=== PATIENT | male | born 1985 | race Caucasian/White ===

== ENCOUNTER 2021-03-27 23:11 | Emergency (ER) | payer BC ==
[~2021-03-27] VITALS: Ht 172.7 cm; Wt 88.2 kg
--- NOTE | 2021-03-27 23:15 | PHYS DOC ---
General Adult HPI: HPI: "..My dogs were starting to get into it.... and I ran down the stairs to break [employer] up.. and slipped on stairs..and jammed this toe.. I thinik I broke il.." Patient is a 35 year old male who presents with above hx and complaints slip and fall on stairs stabbing right foot with localized injury to third toe. Toe appears to be fractured and displaced. Distal sensation is intact. Distal cap refill is equal to other toes. Patient denies other injury. Patient normally healthy. 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 Patient denies any travel or specific ill contacts. Normally healthy. Review of Systems: Review of Systems: Constitutional: Denies fever or chills Eyes: Denies change in visual acuity HENT: Denies nasal congestion or sore throat Respiratory: Denies cough or shortness of breath Cardiovascular: Denies chest pain or edema GI: Denies abdominal pain, nausea, vomiting, bloody stools or diarrhea : Denies dysuria Musculoskeletal: Complains of injury of the right middle toe Integument: Denies rash Neurologic: Denies headache, focal weakness or sensory changes Endocrine: Denies polyuria or polydipsia Lymphatic: Denies swollen glands Psychiatric: Denies depression or anxiety Family History: Family History: Noncontributory to presentation Current Medications: Current Meds: See nursing for home meds Allergies: Allergies: No known drug allergies Physical Exam: PE: Constitutional: Well developed, well nourished, no acute distress, non-toxic appearance. [] HENT: Normocephalic, atraumatic, bilateral external ears normal, oropharynx moist, no oral exudates, nose normal. [] Eyes: PERRLA, EOMI, conjunctiva normal, no discharge. [] Neck: Normal range of motion, no tenderness, supple, no stridor. [] Cardiovascular:Heart rate regular rhythm, no murmur [] Lungs & Thorax: Bilateral breath sounds equal apex auscultation [] Abdomen: Bowel sounds normal, soft, no tenderness, no masses, no pulsatile masses. [] Skin: Warm, dry, no erythema, no rash. [] Back: No tenderness, no CVA tenderness. [] Extremities: No tenderness, no cyanosis, no clubbing, ROM intact, no edema. [] Except findings in right middle toe as per HPI. Neurologic: Alert and oriented X 3, normal motor function, normal sensory function, no focal deficits noted. [] Psychologic: Affect anxious, judgement normal, mood normal. [] EKG: EKG: [] Radiology/Procedures: Radiology/Procedures: [][address] [address] IMAGING REPORT Signed PATIENT: MADIHA GOLDEN ACCOUNT: [id number] : 1985 LOCATION: ER AGE: 35 SEX: M EXAM STATUS: REG ER ORD. PHYSICIAN: MED YUNG MD REASON: injury PROCEDURE: FOOT RIGHT 3V Study: XR FOOT_RIGHT 3 VIEWS Indication: Injury. Comparison: None. Findings: Acute, displaced fracture of the distal aspect of the third proximal phalanx with dorsal apex angulation. The proximal aspect of the fracture is displaced dorsally by up to approximately 2.5 mm. Foreshortening by a few millimeters as well. No intra-articular extension into the adjacent PIP joint. No additional fracture is identified or traumatic malalignment. Maintained joint spaces. Impression: Acute, displaced and dorsally angulated fracture of the third proximal phalanx, as above. Electronically signed by: JOSR CHAIREZ MD (03/28/2021 12:01 AM) [facility] DICTATED AND SIGNED BY: JOSR CHAIREZ MD DATE: 03/28/21 0000 CC: MED YUNG MD; PCP,NO ~MTH0 0 Heart Score: C/O Chest Pain: N/A HEART Score for Chest Pain: HEART Score for Chest Pain Response (Comments) Value History Slighlty/Non-Suspicious 0 Total 0 Risk Factors: Risk Factors: DM, Current or recent (<one month) smoker, HTN, HLP, family history of CAD, obesity. Risk Scores: Score 0 - 3: 2.5% MACE over next 6 weeks - Discharge Home Score 4 - 6: 20.3% MACE over next 6 weeks - Admit for Clinical Observation Score 7 - 10: 72.7% MACE over next 6 weeks - Early Invasive Strategies Course & Med Decision Making: Course & Med Decision Making Pertinent Labs and Imaging studies reviewed. (See chart for details) Seizure note-reduction of dislocation and splinting-direct traction on right middle toe open reduction of dislocation and fracture. Evan tape to third toe to second toe. Patient use a cast shoe. Patient elevate foot. Patient take Tylenol and ibuprofen for pain. Patient is ice packs. Follow-up primary care. Follow-up with Ortho. Consider repeat x-ray in 2 weeks to see if adequate call us or healing is forming. Return if any concerns. Impression: 1. Fracture and dislocation third toe right [] Benigno Disclaimer: Benigno Disclaimer: This electronic medical record was generated, in whole or in part, using a voice recognition dictation system. Departure Departure: Referrals: PCP,NO (PCP) Benigno Disclaimer This chart was dictated in whole or in part using Voice Recognition software in a busy, high-work load, and often noisy Emergency Department environment. It may contain unintended and wholly unrecognized errors or omissions. MED YUNG MD March 27, 2021 23:15
[2021-03-27 23:20] VITALS: BP 131/85
[2021-03-28] MEDS ORDERED: HYDROcodon/IBUPROFEN 7.5/200MG 1 TAB TABLET PO ONE
--- NOTE | 2021-03-28 00:04 | RAD ---
Study: XR FOOT_RIGHT 3 VIEWS Indication: Injury. Comparison: None. Findings: Acute, displaced fracture of the distal aspect of the third proximal phalanx with dorsal apex angulat ion. The proximal aspect of the fracture is displaced dorsally by up to approximately 2.5 mm. Foresho rtening by a few millimeters as well. No intra-articular extension into the adjacent PIP joint. No ad ditional fracture is identified or traumatic malalignment. Maintained joint spaces. Impression: Acute, displaced and dorsally angulated fracture of the third proximal phalanx, as above. Electronically signed by: JOSR CHAIREZ MD (03/28/2021 12:01 AM) [facility]
== END 2021-03-28 00:03 | disposition home or self-care (01) ==
LOC: ER 23:11
DX: S93.104A Unspecified dislocation of right toe(s), initial encounter (principal); S92.511A Displaced fracture of proximal phalanx of right lesser toe(s), initial encounter for closed fracture; W10.8XXA Fall (on) (from) other stairs and steps, initial encounter; Y93.89 Activity, other specified; Y92.89 Other specified places as the place of occurrence of the external cause; Y99.8 Other external cause status
CPT/HCPCS: 28515; 73630; 99283-25